=== PATIENT | female | born 1940 | race Caucasian/White ===

== ENCOUNTER 2018-12-21 01:29 | Inpatient (IN) | payer MEDICARE, BC ==
[~2018-12-21] VITALS: Ht 165.1 cm; Wt 63.5 kg
--- NOTE | 2018-12-21 01:50 | NUR ---
ADMITTED DIRECTLY FROM [facility] BROUGHT IN BY 2 PARAMEDICS. PATENT ADMITTED ON 5150 HOLD FOR DTS. PATIENT OVERDOSED ON ONE BOTTLE OF REMERON 5 DAYS AGO AND DID NOT TELL HER RELATIVE.. SHE STOPPED TAKING PILLS 9 DAYS AGO, BECAUSE SHE WANTED TO GO TO SLEEP, ADMITS SHE HAS NOT EATEN LATELY PASSIVELY TALING APPROACH OF ENDING HER LIFE, SHE HAS NO REMORSE, SHE FEELS HELPLESS, HAS TROUBLE SLEEPING. PLACED PATIENT IN BED, AWAKE, ALERT, ORIENTED X3, AMBULATORY, LIVES ALONE, RECENTLY FELL AT HOME, NOTED BRUISES ON BLE, ARM AND SHOULDER, OTHERWISE, SKIN CLEAR, PHOTO TAKEN, MRSA DONE, PATIENT REPORTED THAT HER DAUGHTER BHARATH KNOWS SHE'S ADMITTED AT [facility], AND NO NEED TO CALL. PATIENT SHOWS NO S/S OF ANY PAIN, RESPIRATION EVEN, BREATHING PATTERN NON-LABORED, NO APPARENT DISTRESS NOTED. PAGED DIET TECHNICIAN REGISTERED ERIC OR MED RECON TO BE DONE. BELONGINGS INVENTORIED AND CHECKED FOR CONTRABAND. PATIENT DENIES SI/HI AT THIS TIME, HX: OF SUICIDE ATTEMPT X4 PER RECORD. PATIENT IS ABLE TO AMBULATE USING HER CANE. BED LOCKED AND PLACED ON LOWEST POSITION. WILL CONTINUE TO MONITOR Q 15 MINS. TO MAINTAIN SAFETY.
[2018-12-21 02:00] VITALS: BP 139/74
[2018-12-21] MEDS ORDERED: LORAZEPAM 0.5 MG TABLET PO PRN (02:00)
[2018-12-21] MEDS ORDERED: ACETAMINOPHEN 325 MG TABLET PO PRN (02:00)
[2018-12-21] MEDS ORDERED: MAGNESIUM HYDROXIDE 30 ML UDC PO PRN ×2 (02:00)
[2018-12-21] MEDS ORDERED: MAG HYDROX/AL HYDROX/SIMETH 30 ML UDC PO PRN ×2 (02:00)
[2018-12-21] MEDS ORDERED: CARB-93 PO (03:17)
[2018-12-21] MEDS ORDERED: ROSU20TA2 PO (03:17)
[2018-12-21] MEDS ORDERED: OXCA150T5 PO (03:17)
[2018-12-21] MEDS ORDERED: FLUO40CA8 PO (03:17)
--- NOTE | 2018-12-21 06:58 | NUR ---
Dr. Garza came in, new order noted.
--- NOTE | 2018-12-21 07:04 | NUR ---
SEEN BY DR. FLOOD WITH NEW ORDERS.
[2018-12-21 08:00] VITALS: BP 137/67
[2018-12-21] MEDS: FLUOXETINE HCL 20 MG CAPSULE PO SCH (09:47)
[2018-12-21] MEDS: OXCARBAZEPINE 150 MG TABLET PO SCH ×2 (09:48→17:16)
[2018-12-21 16:00] VITALS: BP 132/62
[2018-12-21] MEDS: CARBIDOPA/LEVODOPA 25/100 MG 1 UDTAB PO SCH (17:15)
[2018-12-21 20:00] VITALS: BP 119/56
[2018-12-21 20:26] VITALS: BP 119/56
[2018-12-21] MEDS: ATORVASTATIN 40 MG TABLET PO SCH (21:38)
[2018-12-22 07:03] LABS: BASOPHILS % (AUTO) 0.6 % (0.0-2.0); EOSINOPHILS % (AUTO) 0.9 % (0.0-6.0); HEMATOCRIT 37 % (33-45); HEMOGLOBIN 12.5 g/dL (11.5-14.8); LYMPHOCYTES # (AUTO) 0.9 /CMM (0.8-4.8); LYMPHOCYTES % (AUTO) 16.6 % (20.0-44.0); MEAN CORPUSCULAR HGB CONC 34 g/dl (31.0-36.0); MEAN CORPUSCULAR VOLUME 100 fL (82-100); MONOCYTES # (AUTO) 0.5 /CMM (0.1-1.30); MONOCYTES % (AUTO) 9.2 % (2.0-12.0); NEUTROPHILS # (AUTO) 4.1 /CMM (1.8-8.9); NEUTROPHILS % (AUTO) 72.7 % (43.0-81.0); PLATELET COUNT (AUTO) 188 /CMM (150-450); RED BLOOD CELL COUNT(AUTO) 3.64 MIL/uL (4.0-5.2); WHITE BLOOD COUNT (AUTO) 5.6 K/uL (4.3-11.0)
[2018-12-22 07:13] LABS: ALANINE AMINOTRANSFERASE 32 U/L (12-78); ALBUMIN 3.1 g/dL (3.4-5.0); ALKALINE PHOSPHATASE 55 U/L (46-116); ASPARTATE AMINOTRANSFERASE 23 U/L (15-37); BILIRUBIN,TOTAL 0.8 mg/dL (0.2-1.0); CALCIUM, SERUM 8.8 mg/dL (8.5-10.1); CARBON DIOXIDE 27 mmol/L (21-32); CHLORIDE 99 mmol/L (98-107); CREATININE 0.6 mg/dL (0.6-1.3); GLUCOSE 121 mg/dL (74-106); MAGNESIUM 2.1 mg/dL (1.8-2.4); PHOSPHORUS 3.7 mg/dL (2.5-4.9); SODIUM SERUM 134 mmol/L (136-145); TOTAL PROTEIN, SERUM 6.5 g/dL (6.4-8.2); UREA NITROGEN, BLOOD 14 mg/dL (7-18)
[2018-12-22 07:15] LABS: CHOLESTEROL 135 mg/dL (<200); HDL CHOLESTEROL 58 mg/dL (40-60); LDL 64 mg/dL (0-99); TRIGLYCERIDES 87 mg/dL (30-150)
[2018-12-22 08:00] VITALS: BP 122/60
[2018-12-22] MEDS: CARBIDOPA/LEVODOPA 25/100 MG 1 UDTAB PO SCH ×3 (08:58→17:10)
[2018-12-22] MEDS: OXCARBAZEPINE 150 MG TABLET PO SCH ×2 (08:58→17:10)
[2018-12-22] MEDS: FLUOXETINE HCL 20 MG CAPSULE PO SCH (08:58)
--- NOTE | 2018-12-22 12:38 | NUR ---
SLIMECO: MOM GIVEN FOR C/O CONSTIPATION.
--- NOTE | 2018-12-22 12:50 | NUR ---
YUDI called the pt's daughter/DPOA, Dahlia ([phone]), and informed her that the pt was admitted to the hospital and that she is going to be held for a few days at this time to stabilize her and make medication changes. YUDI discussed the initial discharge plan with the pt's DPOA and she stated that the pt can return to her mobile home where she visits often and makes sure the pt is managing well.
--- NOTE | 2018-12-22 12:51 | NUR ---
Initial Discharge Plan: Pt currently resides in a mobile home by herself located at [address] [place] [address]; ([phone]). Per pt, she would like to return to her home. When speaking with the pt's daughter/DPOA, Dahlia ([phone]), she also agreed to the discharge plan for the pt to return home. SW will work with the MD and the pt regarding appropriate discharge planning. SW will form a safe and proper discharge.
[2018-12-22 16:00] VITALS: BP 100/70
[2018-12-22 20:36] VITALS: BP 142/69
[2018-12-22] MEDS: ATORVASTATIN 40 MG TABLET PO SCH (21:53)
[2018-12-23 08:00] VITALS: BP 143/74
[2018-12-23] MEDS: CARBIDOPA/LEVODOPA 25/100 MG 1 UDTAB PO SCH ×3 (08:24→16:24)
[2018-12-23] MEDS: FLUOXETINE HCL 20 MG CAPSULE PO SCH (08:24)
[2018-12-23] MEDS: OXCARBAZEPINE 150 MG TABLET PO SCH ×2 (08:24→16:24)
[2018-12-23 16:00] VITALS: BP 147/75
[2018-12-23 20:15] VITALS: BP 131/68
[2018-12-23] MEDS: ATORVASTATIN 40 MG TABLET PO SCH (21:40)
[2018-12-24] MEDS: TEMAZEPAM 7.5 MG CAPSULE PO PRN (02:22)
[2018-12-24 08:00] VITALS: BP 142/77
[2018-12-24] MEDS: CARBIDOPA/LEVODOPA 25/100 MG 1 UDTAB PO SCH ×3 (08:46→16:35)
[2018-12-24] MEDS: OXCARBAZEPINE 150 MG TABLET PO SCH ×2 (08:46→16:35)
[2018-12-24] MEDS: FLUOXETINE HCL 20 MG CAPSULE PO SCH (08:46)
--- NOTE | 2018-12-24 10:21 | NUR ---
SW called the pt's daughter/DPOA, Dahlia ([phone]), and informed her that the pt's hold was extended to a 5250 the previous day. Pt's daughter stated that she wants an update regarding the pt's treatment and that she would like to speak to the psychiatrist. She stated that the medications have not been changed and she feels as if the pt being in the hospital is just "glorified babysitting." She stated that she does not feel like the pt is receiving appropriate care and the SW informed her that she will encourage the pt to participate in groups and that she will speak to the nurses about being more attentive.
--- NOTE | 2018-12-24 10:55 | NUR ---
SW asked the pt to participate in the weekly group that is put on by the SWs of the unit and the pt stated that she did not want to participate.
--- NOTE | 2018-12-24 12:05 | NUR ---
SW left a message for the pt's psychiatrist, Dr. Garza, on the message cork board, that stated that the pt's daughter and DPOA would like a call regarding the pt's treatment.
[2018-12-24 16:00] VITALS: BP 143/73
[2018-12-24 19:52] VITALS: BP 142/75
[2018-12-24] MEDS: ATORVASTATIN 40 MG TABLET PO SCH (21:54)
[2018-12-25] MEDS: TEMAZEPAM 7.5 MG CAPSULE PO PRN ×2 (01:22→22:49)
[2018-12-25 08:00] VITALS: BP 150/82
[2018-12-25] MEDS: CARBIDOPA/LEVODOPA 25/100 MG 1 UDTAB PO SCH ×3 (09:17→17:07)
[2018-12-25] MEDS: FLUOXETINE HCL 20 MG CAPSULE PO SCH (09:17)
[2018-12-25] MEDS: OXCARBAZEPINE 150 MG TABLET PO SCH ×2 (09:17→17:07)
[2018-12-25] MEDS: ACETAMINOPHEN 325 MG TABLET PO PRN (11:57)
[2018-12-25 16:00] VITALS: BP 142/67
[2018-12-25 20:00] VITALS: BP 145/74
[2018-12-25] MEDS: ATORVASTATIN 40 MG TABLET PO SCH (21:04)
[2018-12-26] MEDS: ACETAMINOPHEN 325 MG TABLET PO PRN (04:50)
--- NOTE | 2018-12-26 04:56 | NUR ---
GPS/RN PATIENT IS AWAKE, C/O HEADACHE, TYLENOL 650 MG PO WAS GIVEN ORDERED. WILL MONITOR.
--- NOTE | 2018-12-26 06:00 | NUR ---
GPS/RN PATIENT IS SLEEPING, AROUSABLE, APPEAR COMFORTABLE, NO DISTRESS NOTED, CALL LIGHT IN REACH. WILL CONTINUE TO MONITOR.
[2018-12-26 08:00] VITALS: BP 117/72
--- NOTE | 2018-12-26 08:23 | NUR ---
SW called the pt's daughter/DPOA, Dahlia ([phone]), and informed her that the pt's psychiatrist did not come in yesterday and that he was covered by a different psychiatrist, Dr. Stephens. SW had asked Dr. Stephens to call the pt's daughter but she stated that it would be best if Dr. Garza did it himself since he is the pt's psychiatrist and the SW agreed. Pt's daughter stated that the pt has been in the hospital for almost one week and she has not received a call. She stated that she wanted to make a complaint so the SW transferred her to the nursing rice milling supervisor.
--- NOTE | 2018-12-26 08:25 | NUR ---
RN-CO: NOTIFIED
[2018-12-26] MEDS: OXCARBAZEPINE 150 MG TABLET PO SCH (09:55)
[2018-12-26] MEDS: CARBIDOPA/LEVODOPA 25/100 MG 1 UDTAB PO SCH ×3 (09:55→17:57)
[2018-12-26] MEDS: FLUOXETINE HCL 20 MG CAPSULE PO SCH (09:55)
--- NOTE | 2018-12-26 11:44 | NUR ---
YUDI paged the pt's psychiatrist, Dr. Garza, who called her back and was informed that the pt's daughter has been making complaints and would like a call regarding the pt's treatment. He stated that the pt is reporting that she is no longer suicidal and that she can be discharged back home on Saturday. YUDI asked him if he would be willing to call the pt's daughter and DPOA to inform her of this and he stated that he would. YUDI provided him with the phone number to contact the pt's daughter and DPOA.
--- NOTE | 2018-12-26 11:45 | NUR ---
YUDI was told by covering psychiatrist, Dr. Stephens, that Dr. Garza stated he would not be able to call the pt's daughter and DPOA and therefore she stated that she would. YUDI provided her with the number to contact the pt's daughter/DPOA, Dahlia ([phone]), and they spoke to her together. Dr. Stephens informed her about the medications that the pt is on as well as her current state. She suggested that the pt be discharged on Saturday but that the weekend was also acceptable per family's request. It was concluded that the pt will be discharged on Saturday and that the SW would coordinate with the pt's daughter on that.
[2018-12-26 16:00] VITALS: BP 116/64
[2018-12-26 20:00] VITALS: BP 141/78
[2018-12-26] MEDS ORDERED: OLANZAPINE 2.5 MG TABLET PO SCH (20:00)
[2018-12-26] MEDS: ATORVASTATIN 40 MG TABLET PO SCH (21:05)
[2018-12-27] MEDS: ACETAMINOPHEN 325 MG TABLET PO PRN (01:21)
[2018-12-27 08:00] VITALS: BP 132/65
[2018-12-27] MEDS: CARBIDOPA/LEVODOPA 25/100 MG 1 UDTAB PO SCH (08:15)
[2018-12-27] MEDS ORDERED: FLUOXETINE HCL 20 MG CAPSULE PO SCH (09:00)
--- NOTE | 2018-12-27 12:03 | NUR ---
GPS DRIVER MESSENGER NOTE: PT DISCHARGE HOME PICKED UP BY DAUGHTER BHARATH TO [address] [place] [address]. PT IN STABLE CONDITION NO S/S DISTRESS NOTED AMBULATORY WITH WALKER, A&O X 3 , COMPLIANT WITH MEDICATIONS ,VSS PT DENIES SI/HI .DR JUAN DANIEL CAMERON AWARE ORDER DC PT HOME WITH RX GIVEN AND EXPLAIN PT AND DAUGHTER. ALL BELONGINGS AND VALUABLES RETURNED TO PT. SKIN ASSESSED WITH PICTURE PLACED AND THE CHART.
--- NOTE | 2018-12-29 11:16 | NUR ---
Discharge Note: Pt was discharged home to [address] [place] [id number]; ([phone]). Pt was picked up by her daughter/DPOA, Dahlia ([phone]), at 12PM. Upon discharge, the pt had denied suicidal and homicidal ideation to the nurses as well as auditory and visual hallucinations. Pt will follow up with her psychiatrist, Dr. Margaret Puente, located at [address] [place] [address] [address] [address]; on 01/01/19 at 9:45AM. Pt will also follow up with her kitchen stewardess, Dr. Leatha Laguna, located at [address] [place] [address] [address], [place] [address]; on 12/29/18 at 8:30AM.
== END 2018-12-27 12:00 | disposition home or self-care (01) | DRG 885 ==
LOC: GPS 01:29
PROVIDERS: ADMIT Psychiatry & Neurology Psychiatry; ATTEND Psychiatry & Neurology Psychosomatic Medicine
DX: F33.2 Major depressive disorder, recurrent severe without psychotic features (principal); E44.1 Mild protein-calorie malnutrition; G20 Parkinson's disease; E78.5 Hyperlipidemia, unspecified; G89.29 Other chronic pain; Z68.23 Body mass index [BMI] 23.0-23.9, adult
CPT/HCPCS: 36415; 80053-TC; 80061-TC; 83735-TC; 84100-TC; 84443-TC; 85025-TC